=== PATIENT | male | born 1970 | race Hispanic/Latino ===

== ENCOUNTER 2021-03-10 09:40 | Day surgery (SDC) | payer OTHER ==
[2021-03-10] MEDS ORDERED: LIDOCAINE HCL 1% MDV 50ML VIAL ONE (12:25)
[2021-03-10] MEDS ORDERED: IODIXANOL 320 MG/ML 100 ML VIAL ONE (12:25)
== END 2021-03-10 14:04 | disposition home or self-care (01) ==
LOC: DAH 09:40 → SUH 09:40
PROVIDERS: ATTEND Surgery
DX: T85.638A Leakage of other specified internal prosthetic devices, implants and grafts, initial encounter (principal); K91.5 Postcholecystectomy syndrome; Y83.8 Other surgical procedures as the cause of abnormal reaction of the patient, or of later complication, without mention of misadventure at the time of the procedure
CPT/HCPCS: 47536; A4215; A4216; A4221; A4222; A4223 ×3; A4606; A4663; C1729; C1769 ×2; J1644; J3490; Q9967